=== PATIENT | male | born 1935 | race Caucasian/White ===

== ENCOUNTER → 2016-11-28 | Outpatient (CLI) | payer OTHER ==
[~2016-11-28] MED LIST: AMLO-110 PO; ASPI81TA28 PO; ATEN50TA8 PO; BENA20TA14 PO; FURO40TA3 PO; GLIP-197 PO; OPTIRAY 320 IV PRN; PRAV20TA PO; PRED1SUS3 OPR; TERB250T47 PO; TRAM-10 PO; [UNRECOGNIZED DRUG - CODE] OPL
--- NOTE | 2016-11-28 14:05 | DIAGNOSTIC IMAGING REPORT ---
CTA OF THE ABDOMEN, PELVIS, BILATERAL LOWER EXTREMITIES HISTORY: Right foot and toe pain. ARTERIAL OCCLUSIONS TECHNIQUE: Multiaxial CT images of the abdomen, pelvis, bilateral lower extremity is performed following the use of intravenous contrast to evaluate the arterial systems. Maximal intensity projection images are also obtained. COMPARISON STUDY: None. FINDINGS: Severe calcified and noncalcified plaque within the abdominal aorta. The abdominal aorta is mildly ectatic measuring up to 2.2 cm distally. No evidence for abdominal aortic and is at this time. The large amount of soft plaque within the abdominal aorta results in multiple areas of up to 50-60% stenosis. This is best seen on axial image 260. There is a focal finger like projection of soft plaque within the proximal abdominal aorta which measures 1 cm in size. The proximal inferior mesenteric artery is occluded. There is reconstitution of the mid inferior mesenteric artery due to mesenteric collaterals. Mild to moderate stenosis at the origin of the celiac artery. There is also [id number] stenosis within the proximal right renal artery. There is high-grade stenosis at the proximal left renal artery with possible occlusion. However, there is contrast seen within the mid to distal left renal artery. There is severe atrophy and diminished perfusion within the left kidney. Mild multifocal stenosis within the bilateral common iliac arteries. High-grade stenosis at the origins of the bilateral internal iliac arteries. Multifocal moderate stenosis within the left external iliac artery measuring up to 50%. Multifocal moderate to severe stenosis within the right external iliac artery. This is most pronounced proximally where there is an area of 80-90% stenosis best seen on axial image 346. On the left: Mild to moderate multifocal stenosis within the left common iliac artery. The entire left superficial femoral artery is occluded. Focal high-grade stenosis at the proximal left profunda femoris artery of approximately 80%. There is reconstitution of flow within the left popliteal artery due to multiple collaterals. Multifocal mild stenosis within the left popliteal artery. The mid to distal anterior tibial artery and majority of the dorsalis pedis artery are occluded. The distal dorsalis pedis artery is reconstituted through plantar collaterals. The posterior tibial and peroneal arteries are patent. On the right: Focal high-grade stenosis at the distal right common femoral artery of approximately 90%. This is best in image 446. The proximal right profunda femoris artery may be occluded. However, the remaining portions of the profunda femoris artery are patent. Multifocal severe stenosis within the mid to distal superficial femoral artery. There may be a short segment of the occlusion within the mid right superficial femoral artery on image 574. There is a short segment of occlusion seen within the distal superficial femoral artery. There is reconstitution of flow at the popliteal artery due to collaterals. Multifocal moderate to severe stenosis within the proximal popliteal artery of up to 90%. Mild stenosis at the origin of the posterior tibial artery. Otherwise, there is no significant stenosis within the posterior tibial are peroneal arteries. A short segment of the distal anterior tibial artery is perfused due to a distal collateral from the peroneal artery. The proximal to mid anterior tibial artery is occluded. The dorsalis pedis artery is patent. The lung bases are clear. Bilateral lower extremity edema. Trace bilateral hydroceles. The prostate gland is enlarged. Normal bladder. Cholelithiasis. The liver, spleen, and pancreas are unremarkable. There is bilateral adrenal gland thickening which is likely age-related. No retroperitoneal lymphadenopathy. There is a 2 cm diverticulum at the duodenum. No bowel wall thickening or obstruction. Normal appendix. IMPRESSION: 1. Severe atherosclerotic disease as described above. Specifically, the entire left superficial femoral artery is occluded. However, there is reconstitution of flow at the left popliteal artery due to multiple collaterals. Additional multifocal areas of occlusion and high-grade stenosis as described above. 2. Severe stenosis with possible occlusion of the proximal left renal artery. However, there is contrast seen within the mid to distal left renal artery. This likely results in the hypoperfused and atrophic left kidney. 3. Cholelithiasis. 4. Enlarged prostate. 5. Bilateral lower extremity subcutaneous edema. Electronically signed by: Slade Barton M.D. 11/28/2016 2:03 PM Dictated Date/Time: 11/28/2016 1:32 PM
== END | disposition home or self-care (01) ==
LOC: C.CTS 11:25
PROVIDERS: ATTEND Internal Medicine Interventional Cardiology
DX: I70.202 Unspecified atherosclerosis of native arteries of extremities, left leg (principal); I70.1 Atherosclerosis of renal artery; K80.20 Calculus of gallbladder without cholecystitis without obstruction; N40.0 Benign prostatic hyperplasia without lower urinary tract symptoms

== ENCOUNTER 2017-01-07 16:26 | Emergency (ER) | payer OTHER ==
[~2017-01-07] VITALS: Ht 170.2 cm; Wt 63.3 kg
[~2017-01-07 16:26] MED LIST changes: -OPTIRAY 320 IV PRN
[2017-01-07 16:35] VITALS: Ht 170.2 cm; Wt 63.3 kg
[2017-01-07] MEDS ORDERED: DIPHTHERIA/TETANUS/PERTUSSIS 0.5 ML SYR/VIAL IM. ONE (16:45)
--- NOTE | 2017-01-07 16:46 | EMERGENCY ROOM VISIT NOTE ---
History Report prepared by Scribe: Dana Martinez Under the Supervision of: Dr. Johnnie Joya M.D. First contact with patient: 16:38 Chief Complaint: FALL Stated Complaint: FALL, HEAD LACERATION History of Present Illness The patient is a 81 year old male who presents to the Emergency Room with complaints of a fall that occurred prior to arrival. He was brought to the ED via EMS. EMS states his fall was witnessed, and he was seen falling in front of [employer], landing on the back of his head. The patient states he does not remember the fall, only stumbling on a curb outside [employer]. He does not think he' s had a Tetanus injection in "over 20 years". He denies any neck pain. He admits to discomfort in the back of his head where he landed. 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 A total of 10 systems reviewed and were otherwise negative. Past Medical & Surgical Medical Problems: (1) Hyperlipidemia (2) Hypertension Social History Smoking Status: Former Smoker Drug Use: none Marital Status: single Housing Status: lives alone Occupation Status: retired Current/Historical Medications Scheduled Amlodipine (Norvasc), 5 MG PO QAM Aspirin (Aspirin Ec), 81 MG PO QAM Atenolol (Tenormin), 50 MG PO QAM Benazepril (Lotensin), 20 MG PO BID Furosemide (Lasix), 40 MG PO QAM Glipizide (Glipizide Er), 1 TAB PO QAM Pravastatin (Pravachol ), 20 MG PO HS Allergies Coded Allergies: Labetalol (Verified Adverse Reaction, Unknown, Sexual side effects, ) Physical Exam Vital Signs Date Time Temp Pulse Resp B/P Pulse Ox O2 Delivery O2 Flow Rate FiO2 01/07/17 18:39 93 20 144/75 95 Room Air 01/07/17 18:25 92 18 147/76 96 Room Air 01/07/17 16:35 36.6 93 18 152/75 98 Room Air Physical Exam GENERAL: Patient is elderly appearing and in minimal distress. He appears to be mildly confused, but remembers the episode prior to the head injury, but has prolonged amnesia following it. HEENT: Normocephalic, large circular contusion/abrasion over posterior scalp, mild tenderness to palpation, mucous membranes moist, no nasal congestion, no scleral icterus. NECK: Patient in cervical collar. No stridor, no adenopathy, no meningismus, trachea is midline. LUNGS: No dyspnea. Clear to auscultation and equal bilaterally. No wheeze, no rhonchi. HEART: Regular rate and rhythm. No murmurs, rubs, gallops appreciated. ABDOMEN: Soft, nontender, bowel sounds positive, no masses appreciated, no peritonitis. BACK: No midline tenderness, no CVA tenderness EXTREMITIES: Boot right foot. Dressing left great toe. Bilateral skin tears to the forearms, with minor abrasions. Normal motion all extremities, no cyanosis, no edema. NEUROLOGIC: Alert and oriented, no acute motor or sensory deficits, no focal weakness, cranial nerves grossly intact. SKIN: No rash, no jaundice, no diaphoresis. Medical Decision & Procedures ER Provider Diagnostic Interpretation: These X-Rays were reviewed and interpreted by myself and the radiologist. CHEST ONE VIEW PORTABLE IMPRESSION: No acute cardiopulmonary findings. Electronically signed by: Doug Nath M.D. 01/07/2017 5:12 PM PELVIS 1 OR 2 VIEW ROUTINE IMPRESSION: No acute fracture within the pelvis or hips. Electronically signed by: Doug Nath M.D. 01/07/2017 5:[address] scans were reviewed and interpreted by the radiologist and reviewed by myself. CT OF THE CERVICAL SPINE WITHOUT CONTRAST IMPRESSION: No acute cervical spine fracture or subluxation. Electronically signed by: Doug Nath M.D. 01/07/2017 5:[address] OF THE HEAD WITHOUT CONTRAST IMPRESSION: 1. Small amount of acute subarachnoid hemorrhage overlying the left temporal lobe. 2. Small right posterior scalp contusion and laceration. No calvarial fracture. Multiple small radiodensities within the scalp at site of laceration may reflect foreign bodies. Electronically signed by: Doug Nath M.D. 01/07/2017 6:01 PM Laboratory Results 01/07/17 16:42 Red Blood Count 4.22, Mean Corpuscular Volume 94.5, Mean Corpuscular Hemoglobin 31.3, Mean Corpuscular Hemoglobin Concent 33.1, Mean Platelet Volume 10.6, Neutrophils (%) (Auto) 70.0, Lymphocytes (%) (Auto) 18.1, Monocytes (%) (Auto) 10.1, Eosinophils (%) (Auto) 1.3, Basophils (%) (Auto) 0.2, Neutrophils # (Auto ) 7.25, Lymphocytes # (Auto) 1.87, Monocytes # (Auto) 1.05, Eosinophils # (Auto ) 0.13, Basophils # (Auto) 0.02 01/07/17 16:42 Test 01/07/17 16:42 White Blood Count 10.35 K/uL (4.8-10.8) Red Blood Count 4.22 M/uL (4.7-6.1) Hemoglobin 13.2 g/dL (14.0-18.0) Hematocrit 39.9 % (42-52) Mean Corpuscular Volume 94.5 fL (80-100) Mean Corpuscular Hemoglobin 31.3 pg (25-34) Mean Corpuscular Hemoglobin Concent 33.1 g/dl (32-36) Platelet Count 260 K/uL (130-400) Mean Platelet Volume 10.6 fL (7.4-10.4) Neutrophils (%) (Auto) 70.0 % Lymphocytes (%) (Auto) 18.1 % Monocytes (%) (Auto) 10.1 % Eosinophils (%) (Auto) 1.3 % Basophils (%) (Auto) 0.2 % Neutrophils # (Auto) 7.25 K/uL (1.4-6.5) Lymphocytes # (Auto) 1.87 K/uL (1.2-3.4) Monocytes # (Auto) 1.05 K/uL (0.11-0.59) Eosinophils # (Auto) 0.13 K/uL (0-0.5) Basophils # (Auto) 0.02 K/uL (0-0.2) RDW Standard Deviation 44.6 fL (36.4-46.3) RDW Coefficient of Variation 13.0 % (11.5-14.5) Immature Granulocyte % (Auto) 0.3 % Immature Granulocyte # (Auto) 0.03 K/uL (0.00-0.02) Prothrombin Time 11.0 SECONDS (9.0-12.0) Prothromb Time International Ratio 1.0 (0.9-1.1) Activated Partial Thromboplast Time 25.5 SECONDS (21.0-31.0) Partial Thromboplastin Ratio 1.0 Anion Gap 10.0 mmol/L (3-11) Est Creatinine Clear Calc Drug Dose 35.2 ml/min Estimated GFR () 50.2 Estimated GFR (Non- 43.3 BUN/Creatinine Ratio 15.7 (10-20) Calcium Level 8.3 mg/dl (8.5-10.1) Total Bilirubin 0.7 mg/dl (0.2-1) Direct Bilirubin mg/dl (0-0.2) Aspartate Amino Transf (AST/SGOT) U/L (15-37) Alanine Aminotransferase (ALT/SGPT) 24 U/L (12-78) Alkaline Phosphatase 48 U/L (45-117) Total Creatine Kinase U/L (39-308) Troponin I 0.031 ng/ml (0-0.045) Total Protein 6.8 gm/dl (6.4-8.2) Albumin 3.8 gm/dl (3.4-5.0) Laboratory results as reviewed by me. Medications Administered Medications (Trade) Dose Ordered Sig/Shadia Route Start Time Stop Time Status Last Admin Dose Admin Diphtheria/ Pertussis/Tetanus Vacc (Adacel Inj) 0.5 ml ONCE ONCE IM. 01/07/17 16:45 01/07/17 16:46 DC 01/07/17 17:35 0.5 ML ECG Indication: syncope Rate (beats per minute): 69 Rhythm: normal sinus (normal sinus rhythm) Findings: T-wave inversion (Anterolateral), no ectopy, other (QTC is 480 milliseconds, no STEMI) Comparison ECG Date: no prior available Change: 2nd EKG performed on January 07, 2017: Normal sinus rhythm, rate of 90. No ischemia, no ectopy. Similar to previous EKG with T-wave inversions still present. ED Course 1640: The patient was evaluated in room B11. A complete history and physical exam was performed. 1645: Adacel Inj 0.5 ml IM. 1804: I reevaluated the patient. He is completely alert and oriented. His GCS is 15. He notes he feels like he is being "strangled" by the cervical collar. He has no midline tenderness to palpation, so I removed the cervical collar. 1812: I discussed the patient's case with Dr. DollYudi Emergency Medicine at [facility] in [place]. He has accepted the patient as a transfer and will send a helicopter to pick him up. Medical Decision Differential: Vaso-vagal, Intracerebral Event, Neurologic, Infectious, Volume Deficiency, Hypoglycemia, Electrolyte Abnormality, Cardiac Source, Toxicologic, amongst other pathologies entertained. 81 yr old male with syncopal episode this afternoon. He describes trying to get up curb and foot getting stuck thus I suspect this was primarily a mechanical fall. Resultant fall with posterior head injury followed by prolonged amnesia that really wasn't improving until arrival. With SAH I suppose there is chance that patient had bleed then feel but denies headache nor other neuro deficits at this time. Furthermore, does have lateral T wave inversions of uncertain etiology though there is no previous for comparison. Trop is wnl though is non-negative. Repeat EKG 1 hour post arrival unchanged from initial EKG. No chest pain, shob. Mild renal insufficiency. Vitals stable. Only anticoag is Asa 81 mg daily. INR normal. Other labs look good. Abdomen benign. CXR/Pelv clear. GCS 15 and requesting cervical collar off. He is clearly not altered and is capable of understanding risks thus cervical collar removed with no midline cervical TTP. Given head injury and bleed with likely many hours prior to transfer by ground seems that [employer] is necessary. Discussed with patient on several occasions and aware. Was given Adacel for tetanus vaccination. Skin tears over bilateral arms. Scalp without need for emergent closure and no longer bleeding. Consults Time Called: 1809 Consulting Physician: Yudi March Emergency Medicine at [facility] Returned Call: 1812 I discussed the patient's case with Yudi March Emergency Medicine at [facility] in [place]. He has accepted the patient as a transfer and will send a helicopter to pick him up. Impression Primary Impression: Subarachnoid hemorrhage Additional Impressions: Acute electrocardiogram changes Syncope Status post fall Critical Care I have personally spent greater than 45 minutes of critical care time in the direct management of this patient. This was a life/limb threatening event. This includes time spent evaluating patient, direct bedside care, chart review, placing orders, interpretation of diagnostic studies, discussion with consultants, patient, and family members, as well as other required patient management activities. This 45 minutes is in excess of all separately billable procedures. Scribe Attestation The scribe's documentation has been prepared under my direction and personally reviewed by me in its entirety. I confirm that the note above accurately reflects all work, treatment, procedures, and medical decision making performed by me. Departure Information Dispostion Transfer Acute Care Facility (The patient has been accepted as a transfer via helicopter to [facility] in [place]) Referrals Mike Ponce D.O. (PCP) Patient Instructions My [facility] Problem Qualifiers Additional Impressions: Syncope Syncope type: unspecified Qualified Codes: R55 - Syncope and collapse
[2017-01-07 16:57] LABS: BASO % 0.2 %; BASO ABS # 0.02 K/uL (0-0.2); COMPLETE YES; EOS % 1.3 %; HEMATOCRIT 39.9 % (42-52); IG% 0.3 %; LYMPH % 18.1 %; LYMPH ABS # 1.87 K/uL (1.2-3.4); MEAN CELL VOLUME 94.5 fL (80-100); MEAN CORPUSCULAR HEMOGLOBIN 31.3 pg (25-34); MEAN CORPUSCULAR HGB CONC 33.1 g/dl (32-36); MEAN PLATELET VOLUME 10.6 fL (7.4-10.4); MONO % 10.1 %; PLATELET COUNT 260 K/uL (130-400); RED BLOOD COUNT 4.22 M/uL (4.7-6.1); WHITE BLOOD COUNT 10.35 K/uL (4.8-10.8)
--- NOTE | 2017-01-07 17:13 | DIAGNOSTIC IMAGING REPORT ---
CHEST ONE VIEW PORTABLE CLINICAL HISTORY: Altered mental status. COMPARISON STUDY: No previous studies for comparison. FINDINGS: Lung volumes are normal. No consolidation is identified. There is no evidence of pulmonary edema. There is borderline cardiomegaly. No pneumothorax or pleural effusion is identified. IMPRESSION: No acute cardiopulmonary findings. Electronically signed by: Doug Nath M.D. 01/07/2017 5:12 PM Dictated Date/Time: 01/07/2017 5:10 PM
--- NOTE | 2017-01-07 17:22 | DIAGNOSTIC IMAGING REPORT ---
PELVIS 1 OR 2 VIEW ROUTINE CLINICAL HISTORY: Fall. COMPARISON STUDY: CT of the abdomen and pelvis with lower external runoff annular 2016. FINDINGS: The sacroiliac joints and symphysis pubis are intact. No acute fracture is identified within the pelvis or hips. This extensive vascular calcification. IMPRESSION: No acute fracture within the pelvis or hips. Electronically signed by: Doug Nath M.D. 01/07/2017 5:20 PM Dictated Date/Time: 01/07/2017 5:19 PM
[2017-01-07 17:48] LABS: ALKALINE PHOSPHATASE 48 U/L (45-117); ALT/SGPT 24 U/L (12-78); BLOOD UREA NITROGEN 23 mg/dl (7-18); BUN/CREATININE RATIO 15.7 (10-20); CALCIUM 8.3 mg/dl (8.5-10.1); CARBON DIOXIDE 29 mmol/L (21-32); CHLORIDE 103 mmol/L (98-107); GLUCOSE 153 mg/dl (70-99); SODIUM 142 mmol/L (136-145)
--- NOTE | 2017-01-07 17:57 | DIAGNOSTIC IMAGING REPORT ---
CT OF THE CERVICAL SPINE WITHOUT CONTRAST CLINICAL HISTORY: Fall. COMPARISON STUDY: No previous studies for comparison. TECHNIQUE: Helical axial images of the cervical spine were obtained without IV contrast. Sagittal and coronal reconstructions were viewed. FINDINGS: Alignment of the cervical spine is anatomic. Vertebral body heights are maintained. Craniocervical junction is intact. There is no acute fracture. There is no prevertebral edema. Moderate multilevel degenerative disc disease and facet arthrosis is present. IMPRESSION: No acute cervical spine fracture or subluxation. Electronically signed by: Doug Nath M.D. 01/07/2017 5:56 PM Dictated Date/Time: 01/07/2017 5:53 PM
--- NOTE | 2017-01-07 18:03 | DIAGNOSTIC IMAGING REPORT ---
CT OF THE HEAD WITHOUT CONTRAST CLINICAL HISTORY: Altered mental status. Fall. COMPARISON STUDY: No previous studies for comparison. CT DOSE: 932.24 mGy.cm TECHNIQUE: Helical axial images of the head were obtained without IV contrast. Automated exposure control was utilized for the study. FINDINGS: There is a small amount of acute subarachnoid hemorrhage overlying the anterior left temporal lobe. Ventricular system is normal. The basilar cisterns are patent. No extra axial fluid collections are present. Moderate white matter hypodensities likely reflect small vessel disease. There is a right posterior scalp contusion and laceration. There is no calvarial fracture. Multiple small radiodensities within the scalp may reflect foreign bodies. These measure up to 4 mm. IMPRESSION: 1. Small amount of acute subarachnoid hemorrhage overlying the left temporal lobe. 2. Small right posterior scalp contusion and laceration. No calvarial fracture. Multiple small radiodensities within the scalp at site of laceration may reflect foreign bodies. Electronically signed by: Doug Nath M.D. 01/07/2017 6:01 PM Dictated Date/Time: 01/07/2017 5:50 PM
[2017-01-07 19:00] VITALS: BP 145/80; PULSE 93; TEMP 36.6; O2SAT 95
[2017-01-07] MEDS ORDERED: FENTANYL CITRATE INJ 50 MCG/1 ML 2 ML VIAL IV ONE (19:00)
== END 2017-01-07 19:05 | disposition short-term general hospital (02) ==
LOC: EDBD 16:26 → C.EDB 16:27
DX: S06.6X0A Traumatic subarachnoid hemorrhage without loss of consciousness, initial encounter (principal); W19.XXXA Unspecified fall, initial encounter; Y92.89 Other specified places as the place of occurrence of the external cause; Z23 Encounter for immunization; R55 Syncope and collapse; I10 Essential (primary) hypertension; E78.5 Hyperlipidemia, unspecified; N28.9 Disorder of kidney and ureter, unspecified; Z88.8 Allergy status to other drugs, medicaments and biological substances; Z87.891 Personal history of nicotine dependence; Z79.01 Long term (current) use of anticoagulants; Z79.82 Long term (current) use of aspirin; Z79.899 Other long term (current) drug therapy